=== PATIENT | male | born 1940 | race Caucasian/White ===

== ENCOUNTER → 2016-05-22 | Outpatient (CLI) | payer MEDICARE ==
[~2016-05-22] MED LIST: ALLO100T PO; ASPI-860 PO; ATN25T PO; ATN50T PO; BENA1TAB15 PO; BENA20TA2 PO; CLOP75TA28 PO; EZET10TA5 PO; GLUC-113 PO; IBP200T PO; METF1000 PO; METF500T4 PO; MIRALAX 17 GM P17 GM PO; PANT40TA3 PO; SIMV80TA3 PO; UBID100C8 PO; UBID400C6 PO; methylPREDNISolone 80 MG/ML (DEPO MEDROL) VIAL IM ONE
--- NOTE | 2016-05-22 11:42 | PAIN MANAGEMENT ---
Date of note: 05/22/2016 Procedure: Epidural steroid injection This is a 75-year-old patient of Dr. Lenard Johnson. The patient presents with a longstanding history of spinal stenosis. I have done a block for him in the past and he has done quite well with that. Today we are providing epidural steroid injection at L4-5. He has bilateral leg pain and clearly exhibits symptoms of spinal stenosis. The patient is on Plavix. He has been off that now for 5 days as confirmed with Dr[address] Alicea and he has been given orders to start his Plavix tomorrow. Dr. Alicea asked me to have the patient start with 8 pills tomorrow and then go to his regular routine after that day. However, I have asked the patient to confirm this with Dr. Alicea's office today, which he said he would do. With informed consent, the patient was placed in the left lateral decubitus position. Orders for procedure verified. Patient denies any bleeding tendencies. After informed consent obtained, the patient was positioned for the lumbar epidural steroid injection. The area was prepped and draped using aseptic technique. The skin and overlying tissues were localized using 3 mL of 1% Preservative-Free lidocaine using a 25-gauge 1.5-inch needle. A 20-gauge Tuohy needle was advanced, using "loss of resistance" technique, to the epidural space. No blood, cerebral spinal fluid, pain, or paresthesia noted on entry of the epidural space. A 1 mL solution of Depo-Medrol 80 mg was injected slowly without mass volume effect. The patient was placed in supine position 15 minutes prior to being released with proper leg strength and vitals. Pre- and post procedure vital signs stable with no sensory or motor deficit noted. Instruction on followup contact and care provided to the patient.
== END ==
LOC: PMC 10:28
PROVIDERS: ATTEND Internal Medicine
DX: M48.06 Spinal stenosis, lumbar region (principal); I25.10 Atherosclerotic heart disease of native coronary artery without angina pectoris; I48.91 Unspecified atrial fibrillation; I12.9 Hypertensive chronic kidney disease with stage 1 through stage 4 chronic kidney disease, or unspecified chronic kidney disease; N18.3 Chronic kidney disease, stage 3 (moderate); Z79.02 Long term (current) use of antithrombotics/antiplatelets; Z79.82 Long term (current) use of aspirin; F17.200 Nicotine dependence, unspecified, uncomplicated
CPT/HCPCS: 62322; J1040